=== PATIENT | male | born 1980 | race Caucasian/White ===

== ENCOUNTER 2017-08-06 17:02 | Emergency (ER) | payer BC ==
[2017-08-06 17:07] VITALS: BP 165/82
--- NOTE | 2017-08-06 17:25 | ER Document Report ---
ED Medical Screen (RME) - General Chief Complaint: Testicular Pain Stated Complaint: GROIN PAIN Time Seen by Provider: 08/06/17 17:19 Notes: RAPID MEDICAL EVALUATION DISCLOSURE I have seen this patient as part of a Rapid Medical Evaluation and, if applicable, placed any initially appropriate orders. The patient will be seen and fully evaluated, including a full history and physical exam, by a provider ( in Main ED or Fast Track) when a room becomes available. 37-year-old male here with complaints of left testicular pain that started early this morning and has progressively worsened. Pain is worse with standing and movement. Pain is improved with rest however still has some at baseline. When the pain is very severe, he has nausea but no vomiting. No dysuria hematuria frequency hesitancy penile pain/discharge. There is no testicular swelling that he has noticed. No prior history of similar. - Related Data Allergies/Adverse Reactions: No Known Allergies Allergy (Unverified 08/06/17 17:04) Past Medical History - Social History Chew tobacco use (# tins/day): No Frequency of alcohol use: Rare Drug Abuse: None Renal/ Medical History: Denies: Hx Peritoneal Dialysis Physical Exam - Vital signs Vitals: Temp Pulse Resp BP Pulse Ox 99.3 F 107 H 18 165/82 H 98 08/06/17 17:06 08/06/17 17:06 08/06/17 17:06 08/06/17 17:06 08/06/17 17:06 Course - Vital Signs Vital signs: Temp Pulse Resp BP Pulse Ox 99.3 F 107 H 18 165/82 H 98 08/06/17 17:06 08/06/17 17:06 08/06/17 17:06 08/06/17 17:06 08/06/17 17:06
[2017-08-06] MEDS ORDERED: IBUPROFEN 600 MG TABLET PO ONE (17:50)
--- NOTE | 2017-08-06 17:56 | ER Document Report ---
ED GI/ - General Chief Complaint: Testicular Pain Stated Complaint: GROIN PAIN Time Seen by Provider: 08/06/17 17:19 Mode of Arrival: Ambulatory Information source: Patient - HPI Patient complains to provider of: Testicular pain Onset: This morning Notes: 08/06/17 17:51 Patient is here with complaints of left testicular pain. He states that the pain started this morning when he was in the shower. He has had a constant aching pain but has periods where he has severe sharp pain. Denies having the severe pain, he reports feeling nauseous. He denies any vomiting or diarrhea. He denies any dysuria or hematuria. He denies any injury. He denies any swelling. He denies any rash. He denies any penile discharge. Is in a monogamous relationship and has no concerns for STI. He denies any chest pain or shortness of breath. He denies any prior abdominal surgeries. Pain is worse with walking and certain movements, seems to be better when he is at rest. No other complaints at this time. - Related Data Allergies/Adverse Reactions: No Known Allergies Allergy (Unverified 08/06/17 17:04) Past Medical History - Social History Smoking Status: Never Smoker Chew tobacco use (# tins/day): No Frequency of alcohol use: Rare Drug Abuse: None Family History: Reviewed & Not Pertinent Patient has suicidal ideation: No Patient has homicidal ideation: No Renal/ Medical History: Denies: Hx Peritoneal Dialysis Review of Systems - Review of Systems -: Yes All other systems reviewed and negative Physical Exam - Vital signs Vitals: Temp Pulse Resp BP Pulse Ox 99.3 F 107 H 18 165/82 H 98 08/06/17 17:06 08/06/17 17:06 08/06/17 17:06 08/06/17 17:06 08/06/17 17:06 - Notes Notes: GENERAL: alert, cooperative, nontoxic, no distress. HEAD: normocephalic, atraumatic EYES: conjunctiva pink without discharge, no external redness or swelling. EARS: no external swelling, no external redness NOSE: atraumatic, no external swelling MOUTH/THROAT: mucous membranes moist and pink, posterior pharynx without erythema, swelling, exudate. No trismus or drooling. NECK: soft, supple, full range of motion, no meningismus. CHEST: no distress, lungs clear and equal throughout. No wheezing, rales, rhonchi. CARDIAC: regular rate and rhythm, no murmur, normal capillary refill, normal pulses. No peripheral edema noted. ABDOMEN: Soft, nontender. No rebound tenderness or guarding. No mass. Obese abdomen. No hernia. BACK: full range of motion, no CVA tenderness. EXTREMITIES: full range of motion of all extremities. No redness, no swelling. NEURO: alert and oriented x 3, no focal deficits, full range of motion of all extremities. PYSCH: appropriate mood, affect. Patient is cooperative. SKIN: pink, warm, dry, no rash. :. Penis. No penile discharge. Right testicle with no tenderness or mass. Left testicle with generalized tenderness and mild swelling. No obvious mass. Cremasteric reflex present bilaterally. Scrotal skin is normal with no redness or rash. No hernia. Course - Re-evaluation Re-evalutation: 08/06/17 18:41 Patient is nontoxic appearing with stable vitals. Here with complaints of left testicular pain. States that he has a constant aching in the left testicle and then has periods of sharp pain. Pain is worse with touching the testicle as well as with movement. He denies any dysuria or hematuria no abdominal pain no fever. On exam he has tenderness to palpation of the left testicle with mild swelling to the testicle as well as tenderness along the epididymis. No penile discharge. Hemostatic reflexes are normal. His urinalysis shows large blood and leukocyte esterase with greater than 180 RBCs and WBCs. This is consistent with infection. To rule out testicular torsion due to his complaint of his pain , and ultrasound has been ordered. The patient went down the ultrasound and was uncomfortable having ultrasound done and refused to have it done at this time. I have a long discussion with the patient that I am not able to rule out testicular torsion without performing the ultrasound, he verbalized an understanding of that and states that he is willing to take that risk. In reality his exam and urinalysis make this more likely to be epididymitis or orchitis, but again testicular torsion cannot completely be ruled out without testicular ultrasound. Therefore the patient will be signing out AGAINST MEDICAL ADVICE. He was given a dose of Cipro in the emergency department. He will be discharged home with Cipro and Naprosyn. A referral to urology. Instructions to drink lots of water. Follow-up in 2 weeks for recheck. Follow- up sooner for increasing pain, fever, swelling, normal pain, persistent vomiting , or for any further concerns. The patient and/or family have decided to leave against medical advice. The patient and/or family are of sound mind to make this decision. The risks of leaving were discussed with the patient and/or family who verbalized an understanding of these risks. The possibility of worsening condition, chance of increased morbidity, disability, mortality, and even were discussed. The patient and/or family still choose to leave against medical advice. Strict return instructions were given. They were also instructed to return to the emergency department for any concerns not outlined in the return instructions. The patient is noted to have elevated blood pressure during today's emergency department visit. The patient was informed of this finding. The patient was instructed that this may be related to pre-hypertension and requires further evaluation with a primary care provider. The patient has no hypertensive symptoms at this time. The patient's emergency department workup and current diagnosis were explained to the patient and or family. Follow-up instructions were provided. Medications if prescribed were discussed. Instructions for when to return to the emergency department including specific worrisome symptoms were discussed with the patient and/or family. - Vital Signs Vital signs: Temp Pulse Resp BP Pulse Ox 99.3 F 107 H 18 165/82 H 98 08/06/17 17:06 08/06/17 17:06 08/06/17 17:06 08/06/17 17:06 08/06/17 17:06 - Laboratory Laboratory results interpreted by me: 08/06/17 17:36 Urine Protein 100 H Urine Glucose (UA) 50 H Urine Blood LARGE H Ur Leukocyte Esterase LARGE H Discharge - Discharge Clinical Impression: Testicular pain, left, Acute epididymitis Condition: Stable Disposition: HOME, SELF-CARE Instructions: Anti-Inflammatory Medication ([facility]), Epididymitis ([facility]) Additional Instructions: Take medications as prescribed. Elevate your testicles. Follow-up in 2 weeks for recheck. Follow-up sooner for increasing pain, fever, swelling, abdominal pain, persistent vomiting, or for any further concerns. Your blood pressure was elevated during today's visit. Have this rechecked with your doctor. Prescriptions: Ciprofloxacin HCl [Cipro 500 mg Tablet] 500 mg PO BID #28 tablet Naproxen [Naprosyn] 500 mg PO BID #20 tablet Forms: Elevated Blood Pressure, Smoking Cessation Education Referrals: [facility] [Provider Group] - Follow up as needed
[2017-08-06 18:36] LABS: APPEARANCE,URINE CLOUDY; BILIRUBIN,URINE NEGATIVE (NEGATIVE); COLOR,URINE YELLOW; GLUCOSE, URINE 50 mg/dL (NEGATIVE); KETONES,URINE NEGATIVE (NEGATIVE); LEUKOCYTE ESTERASE,URINE LARGE (NEGATIVE); NITRITE,URINE NEGATIVE (NEGATIVE); PROTEIN,URINE 100 mg/dL (NEGATIVE); URINE SPECIFIC GRAVITY 1.021; UROBILINOGEN,URINE NEGATIVE mg/dL (<2.0)
[2017-08-06] MEDS ORDERED: CIPROFLOXACIN HCL 500 MG TABLET PO ONE (18:41)
== END 2017-08-06 19:00 | disposition left against medical advice (07) ==
LOC: ER 17:02
DX: N50.812 Left testicular pain (principal); N45.1 Epididymitis; R03.0 Elevated blood-pressure reading, without diagnosis of hypertension
CPT/HCPCS: 81001; 99284

== ENCOUNTER 2017-11-05 04:57 | Emergency (ER) | payer BC ==
[2017-11-05] MEDS ORDERED: METOCLOPRAMIDE HCL INJ/PF 10 MG/2 ML SDV IV ONE (05:21)
[2017-11-05] MEDS ORDERED: KETOROLAC TROMETHAMINE INJ/PF 30 MG/1 ML SDV IV ONE (05:21)
[2017-11-05] MEDS ORDERED: NORMAL SALINE 1000 ML 1,000 ML IV ONE (05:22)
--- NOTE | 2017-11-05 05:24 | ER Document Report ---
ED Medical Screen (RME) - General Chief Complaint: Abdominal Pain Stated Complaint: ABDOMINAL PAIN Time Seen by Provider: 11/05/17 05:21 Mode of Arrival: Medic Information source: Patient Notes: Patient reports sudden onset of left lower quadrant pain that woke him up at approximately 0330 this morning. Patient denies any nausea or vomiting. Patient reports the pain is in his left flank and radiates to the left lower quadrant. Patient denies a history of any renal stones. Patient is writhing around in pain upon my initial assessment. Exam: Tenderness to palpation to left lower quadrant, tenderness to palpation to left flank. Diaphoretic. I have greeted and performed a rapid initial assessment of this patient. A comprehensive ED assessment and evaluation of the patient, analysis of test results and completion of the medical decision making process will be conducted by additional ED providers. Dictation of this chart was performed using voice recognition software; therefore, there may be some unintended grammatical errors. TRAVEL OUTSIDE OF THE [place] IN LAST 30 DAYS: No - Related Data Allergies/Adverse Reactions: No Known Allergies Allergy (Unverified 08/06/17 17:04) Past Medical History Renal/ Medical History: Denies: Hx Peritoneal Dialysis Physical Exam - Vital signs Vitals: Temp Pulse Resp BP Pulse Ox 98.0 F 84 20 163/97 H 97 11/05/17 04:57 11/05/17 04:57 11/05/17 04:57 11/05/17 04:57 11/05/17 04:57 Course - Vital Signs Vital signs: Temp Pulse Resp BP Pulse Ox 98.0 F 84 20 163/97 H 97 11/05/17 04:57 11/05/17 04:57 11/05/17 04:57 11/05/17 04:57 11/05/17 04:57
[2017-11-05] MEDS ORDERED: MORPHINE SULFATE 10 MG/ML INJ IV ONE (05:35)
[2017-11-05 05:41] LABS: ABSOLUTE BASOPHILS # (AUTO) 0.1 10^3/uL (0.0-0.2); ABSOLUTE EOSINOPHILS # (AUTO) 0.2 10^3/uL (0.0-0.6); ABSOLUTE LYMPHOCYTES (AUTO) 2.4 10^3/uL (0.5-4.7); ABSOLUTE MONOCYTES (AUTO) 0.8 10^3/uL (0.1-1.4); ABSOLUTE NEUT (AUTO) 5.9 10^3/uL (1.7-8.2); BASOPHILS % (AUTO) 0.9 % (0-2); EOSINOPHILS % (AUTO) 2.4 % (0-6); HEMATOCRIT 44.8 % (37.9-51.0); HEMOGLOBIN 15.5 g/dL (13.5-17.0); MEAN CORPUSCULAR HEMOGLOBIN 31.1 pg (27.0-33.4); MEAN CORPUSCULAR HGB CONC 34.6 g/dL (32.0-36.0); MEAN CORPUSCULAR VOLUME 90 fl (80-97); MONOCYTES % (AUTO) 8.2 % (3-13); PLATELET COUNT 279 10^3/uL (150-450); RED BLOOD COUNT 4.98 10^6/uL (4.35-5.55); RED CELL DISTRIBUTION WIDTH 14.4 % (11.5-14.0); SEGMENTED NEUTROPHILS % (AUTO) 62.5 % (42-78); TOTAL CELLS COUNTED % (AUTO) 100 %; WHITE BLOOD COUNT 9.4 10^3/uL (4.0-10.5)
[2017-11-05 05:57] LABS: ALANINE AMINOTRANSFERASE 77 U/L (21-72); ALBUMIN 4.3 g/dL (3.5-5.0); ALKALINE PHOSPHATASE 118 U/L (38-126); ANION GAP 16 (5-19); ASPARTATE AMINO TRANSFERASE 49 U/L (17-59); BILIRUBIN,DIRECT 0.3 mg/dL (0.0-0.4); BILIRUBIN,TOTAL 0.4 mg/dL (0.2-1.3); BLOOD UREA NITROGEN 8 mg/dL (7-20); CALCIUM 9.8 mg/dL (8.4-10.2); CARBON DIOXIDE 25 mmol/L (22-30); CHLORIDE 102 mmol/L (98-107); GLUCOSE 238 mg/dL (75-110); LIPASE 79.8 U/L (23-300); POTASSIUM 4.1 mmol/L (3.6-5.0); SODIUM 142.5 mmol/L (137-145); TOTAL PROTEIN 7.9 g/dL (6.3-8.2)
--- NOTE | 2017-11-05 06:27 | RADIOLOGY REPORT (SQ) ---
EXAM DESCRIPTION: CT ABDOMEN WITHOUT IV CONTRAST COMPLETED DATE/TME: 11/05/2017 05:22 CLINICAL HISTORY: Left flank pain. COMPARISON: None Available. TECHNIQUE: CT of the abdomen and pelvis without IV contrast. Evaluation of the solid organs and vasculature is suboptimal due to lack of IV contrast. DLP: 1670.25 mGy-cm FINDINGS: Lung Bases: The visualized lung bases are clear. Bones: No destructive bone lesions identified. Abdomen: Liver: The liver has normal size and decreased density. Gallbladder: No calcified gallstones. Spleen, Pancreas, and Adrenal Glands: The spleen, pancreas, and adrenal glands are unremarkable. Kidneys: There is a 0.2 cm obstructing calculus in the proximal left ureter producing mild left hydronephrosis. Punctate nonobstructing left renal calculus. No right-sided hydronephrosis. Vasculature: The aorta and IVC have normal caliber and position. Stomach: The stomach and duodenum have normal course. Other: No free intraperitoneal air. No free fluid or lymphadenopathy. Pelvis: Bladder: Urinary bladder is unremarkable. Bowel: No dilated loops of large or small bowel. Appendix: Normal appendix. Pelvis: Prostate is not enlarged. IMPRESSION: 1. There is a 0.2 cm obstructing calculus in the proximal left ureter producing mild left hydronephrosis. 2. Punctate nonobstructing left nephrolithiasis. 3. Hepatic steatosis. This exam was performed according to our departmental dose-optimization program, which includes automated exposure control, adjustment of the mA and/or kV according to patient size and/or use of iterative reconstruction technique.
[2017-11-05] MEDS ORDERED: TAMSULOSIN HCL 0.4 MG CAP.SR.24H PO ONE (06:35)
[2017-11-05] MEDS ORDERED: FENTANYL CITRATE INJ/PF 100 MCG/2 ML AMPUL IV ONE (06:35)
[2017-11-05] MEDS ORDERED: HYDROCODONE/ACETAMINOPHEN 5-325 MG TABLET PO ONE (06:35)
--- NOTE | 2017-11-05 06:35 | ER Document Report ---
ED General - General Chief Complaint: Abdominal Pain Stated Complaint: ABDOMINAL PAIN Time Seen by Provider: 11/05/17 05:21 Mode of Arrival: Medic Notes: 37-year-old male to the emergency department chief complaint of sudden onset of left sided abdominal pain radiating to the left flank. Never had this happen before. Sharp. Rated as 5/5 on a numeric pain scale. Nausea and vomiting. Radiating down to the left mid abdomen area. No other symptoms. Denies any chest pain, shortness of breath, fever, chills, sweats, dysuria or other issues. TRAVEL OUTSIDE OF THE [place] IN LAST 30 DAYS: No - HPI Onset: Just prior to arrival Onset/Duration: Sudden Quality of pain: Sharp, Stabbing Severity: Severe Pain Level: 5 Associated symptoms: Nausea, Vomiting - Related Data Allergies/Adverse Reactions: No Known Allergies Allergy (Unverified 08/06/17 17:04) Past Medical History - General Information source: Patient - Social History Smoking Status: Never Smoker Cigarette use (# per day): No Frequency of alcohol use: None Drug Abuse: None Lives with: Spouse/Significant other Family History: Reviewed & Not Pertinent Patient has suicidal ideation: No Patient has homicidal ideation: No - Past Medical History Cardiac Medical History: Reports: None Pulmonary Medical History: Reports: None EENT Medical History: Reports: None Neurological Medical History: Reports: None Endocrine Medical History: Reports: None Renal/ Medical History: Reports: None. Denies: Hx Peritoneal Dialysis Malignancy Medical History: Reports None GI Medical History: Reports: None Musculoskeletal Medical History: Reports None Past Surgical History: Reports: Hx Orthopedic Surgery - bilateral knee sx Review of Systems - Review of Systems Constitutional: denies: Fever, Malaise, Weakness EENT: denies: Double vision, Difficulty swallowing, Mouth pain Cardiovascular: denies: Chest pain, Palpitations, Heart racing Respiratory: denies: Cough, Hurts to breathe, Short of breath, Wheezing Gastrointestinal: Abdominal pain, Nausea, Vomiting. denies: Diarrhea, Black stools, Rectal bleeding Genitourinary: Flank pain. denies: Burning, Dysuria, Discharge, Frequency, Hematuria, Pain, Urgency, Retention Musculoskeletal: Back pain. denies: Joint pain, Muscle pain, Leg swelling Skin: denies: Dryness, Lesions, Lumps, Rash Hematologic/Lymphatic: denies: Anemia, Blood clots Neurological/Psychological: denies: Confusion, Weakness, Numbness Physical Exam - Vital signs Vitals: Temp Pulse Resp BP Pulse Ox 98.0 F 84 20 163/97 H 97 11/05/17 04:57 11/05/17 04:57 11/05/17 04:57 11/05/17 04:57 11/05/17 04:57 Interpretation: Normal - General General appearance: Appears well, Alert In distress: Mild Notes: Very uncomfortable appearing - HEENT Head: Normocephalic, Atraumatic Eyes: Normal Pupils: PERRL - Respiratory Respiratory status: No respiratory distress Chest status: Nontender Breath sounds: Normal Chest palpation: Normal - Cardiovascular Rhythm: Regular Heart sounds: Normal auscultation Murmur: No - Abdominal Inspection: Normal Distension: No distension Bowel sounds: Normal Tenderness: Tender, Other - Left upper quadrant mild tenderness to palpation. No guarding. Organomegaly: No organomegaly - Back Back: Normal, Nontender - Extremities General upper extremity: Normal inspection, Nontender, Normal color, Normal ROM , Normal temperature General lower extremity: Normal inspection, Nontender, Normal color, Normal ROM , Normal temperature, Normal weight bearing. No: Samuel's sign - Neurological Neuro grossly intact: Yes Cognition: Normal Orientation: AAOx4 [place] Coma Scale Eye Opening: Spontaneous [place] Coma Scale Verbal: Oriented [place] Coma Scale Motor: Obeys Commands [place] Coma Scale Total: 15 Speech: Normal Motor strength normal: LUE, RUE, LLE, RLE Sensory: Normal - Psychological Associated symptoms: Normal affect, Normal mood - Skin Skin Temperature: Warm Skin Moisture: Dry Skin Color: Normal Course - Re-evaluation Re-evalutation: 11/05/17 07:25 CT scan was performed. Pain medication ordered. CT reveals 2 mm stone at the mid left ureter. Ureterolithiasis symptoms correspond to imaging. Will attempt to control patient's pain right now with oral and IV pain medication. Flomax given. Will continue to follow. 11/05/17 07:25 Laboratory 11/05/17 11/05/17 05:17 05:17 WBC 9.4 RBC 4.98 Hgb 15.5 Hct 44.8 MCV 90 MCH 31.1 MCHC 34.6 RDW 14.4 H Plt Count 279 Seg Neutrophils % 62.5 Lymphocytes % 26.0 Monocytes % 8.2 Eosinophils % 2.4 Basophils % 0.9 Absolute Neutrophils 5.9 Absolute Lymphocytes 2.4 Absolute Monocytes 0.8 Absolute Eosinophils 0.2 Absolute Basophils 0.1 Sodium 142.5 Potassium 4.1 Chloride 102 Carbon Dioxide 25 Anion Gap 16 BUN 8 Creatinine 0.90 Est GFR ( Amer) > 60 Est GFR (Non-Af Amer) > 60 Glucose 238 H Calcium 9.8 Total Bilirubin 0.4 Direct Bilirubin 0.3 Neonat Total Bilirubin Not Reportable Neonat Direct Bilirubin Not Reportable Neonat Indirect Bili Not Reportable AST 49 ALT 77 H Alkaline Phosphatase 118 Total Protein 7.9 Albumin 4.3 Lipase 79[address] 11/05/17 05:22 IMPRESSION: 1. There is a 0.2 cm obstructing calculus in the proximal left ureter producing mild left hydronephrosis. 2. Punctate nonobstructing left nephrolithiasis. 3. Hepatic steatosis. This exam was performed according to our departmental dose-optimization program, which includes automated exposure control, adjustment of the mA and/or kV according to patient size and/or use of iterative reconstruction technique. 11/05/17 08:21 Sugar was found to be elevated on chemistry. A1c was added. A1c of 8.0 indicating type 2 diabetes. Will start on metformin. Advised follow-up with pain care doctor. Referral given for urology. Was stable at this time for discharge. - Vital Signs Vital signs: Temp Pulse Resp BP Pulse Ox 98.0 F 84 18 149/83 H 96 11/05/17 04:57 11/05/17 04:57 11/05/17 06:07 11/05/17 06:07 11/05/17 06:07 - Laboratory Result Diagrams: 11/05/17 05:17 11/05/17 05:17 Laboratory results interpreted by me: 11/05/17 11/05/17 11/05/17 05:17 05:17 05:17 RDW 14.4 H Glucose 238 H Hemoglobin A1c % 8.0 H ALT 77 H Discharge - Discharge Clinical Impression: Kidney stone on left side Hyperglycemia due to type 2 diabetes mellitus Qualifiers: Diabetes mellitus shelter insulin use: without termite control technician use Qualified Code(s ): E11.65 - Type 2 diabetes mellitus with hyperglycemia Condition: Good Disposition: HOME, SELF-CARE Additional Instructions: Kidney Stone You are passing or have passed a kidney stone. These stones are usually due to increased calcium or uric acid concentrations in your urine. Stones within the kidney itself are not painful. The pain occurs as the stone leaves the kidney to pass down the long tube, called the ureter, leading to the bladder. If the stone is small, it will usually pass by itself. Most patients can pass the stone at home. You will usually receive medications for pain, nausea or vomiting, and sometimes a medication to assist in passing the kidney stone. However, if the pain is very severe or if vomiting prevents you from taking oral pain medications, you may need to return for further treatment. Drink three or four quarts of fluids per day. You will be given pain medication (if needed) and urine strainers. Strain all your urine to see if the stone passes. If your doctor has asked you to bring the stone in for analysis, return with the stone once it has passed. Return if pain or vomiting become severe, if you develop a high fever, if you are unable to pass your urine, or if other unusual symptoms occur. Diabetes You have an abnormally high blood sugar, suspicious for diabetes. Not all high blood sugar requires long-term treatment. High blood sugar can be due to medications, , or the stress of illness. (These cases are "borderline diabetes.") If the doctor feels your high blood sugar might get better with time, you may not require treatment now. You will be scheduled for further evaluation. It's very important that you follow through. Uncontrolled high blood sugar leads to early heart disease , strokes, nerve damage, eye damage, and kidney damage. All diabetics should follow a diet designed to control the blood sugar. Overweight diabetics should exercise regularly and lose weight. If this is not sufficient to control the blood sugar, pills or insulin shots are necessary. Younger people who develop diabetes almost always require insulin daily. Home testing of blood sugars or urine sugar is required. Diabetic teaching is available to help you figure insulin doses and monitor the blood sugar. Call the physician if there is faintness, excess sleepiness, or very rapid breathing. If hypoglycemia (LOW blood sugar) develops, symptoms are shakiness, weakness, sweating, and confusion. In this case, you should eat or drink something with sugar at once. Prescriptions: Ketorolac Tromethamine [Toradol 10 mg Tablet] 10 mg PO Q6HP PRN 5 Days #20 tablet PRN Reason: Hydrocodone/Acetaminophen [[place] 5-325 mg Tablet] 1 tab PO QID PRN 3 Days #12 tablet PRN Reason: Metformin HCl [Glucophage 500 mg Tablet] 500 mg PO BID #60 tablet Ondansetron [Zofran Odt 4 mg Tablet] 1 - 2 tab PO Q4H PRN #15 tab.rapdis PRN Reason: For Nausea/Vomiting Tamsulosin HCl [Flomax 0.4 mg Cap.sr] 0.4 mg PO DAILY #7 cap.sr.24h Forms: Return to Work Referrals: MARYLIN GRAYSON MD [[facility]] - Follow up as needed EDGARD REID MD [NO LOCAL MD] - 11/10/17
[2017-11-05 08:21] LABS: APPEARANCE,URINE CLOUDY; BILIRUBIN,URINE NEGATIVE (NEGATIVE); COLOR,URINE YELLOW; GLUCOSE, URINE 150 mg/dL (NEGATIVE); KETONES,URINE TRACE mg/dL (NEGATIVE); LEUKOCYTE ESTERASE,URINE MODERATE (NEGATIVE); NITRITE,URINE NEGATIVE (NEGATIVE); PROTEIN,URINE 30 mg/dL (NEGATIVE); URINE SPECIFIC GRAVITY 1.033; UROBILINOGEN,URINE NEGATIVE mg/dL (<2.0)
[2017-11-05] MEDS ORDERED: CEFTRIAXONE INJ 1000 MG VIAL IV ONE (08:43)
[2017-11-05 08:44] VITALS: BP 145/72
== END 2017-11-05 10:15 | disposition home or self-care (01) ==
LOC: ER 04:57
DX: N20.0 Calculus of kidney (principal); E11.65 Type 2 diabetes mellitus with hyperglycemia; R11.2 Nausea with vomiting, unspecified; K76.0 Fatty (change of) liver, not elsewhere classified
CPT/HCPCS: 99285; 96361; 96374; 96375; 36415; 83690; 85025; 80053; 81001; 83036; 76380; J3010; J1885; J2765; J2270; J0696; J7030